=== PATIENT | male | born 1960 | race African-American/Black ===

== ENCOUNTER 2024-05-15 10:55 | Emergency (ER) | payer SELFPAY ==
[~2024-05-15] VITALS: Ht 171.4 cm; Wt 74.8 kg
[~2024-05-15 10:55] MED LIST: AMLO10TA80 PO; COR12 PO; DOXA-14 PO; FINA5TAB11 PO
[2024-05-15 10:58] VITALS: O2SAT 98
[2024-05-15 11:11] VITALS: BP 167/89; PULSE 68; RESP 18; TEMP 37.1; O2SAT 100
== END 2024-05-15 11:59 | disposition home or self-care (01) ==
LOC: ER 10:55
DX: T83.9XXA Unspecified complication of genitourinary prosthetic device, implant and graft, initial encounter (principal); I10 Essential (primary) hypertension; Z79.899 Other long term (current) drug therapy
CPT/HCPCS: 99281